=== PATIENT | male | born 1940 | race Caucasian/White ===

== ENCOUNTER 2019-05-14 11:34 | Emergency (ER) | payer MEDICARE, SELFPAY ==
[2019-05-14 11:40] VITALS: BP 158/81; PULSE 65; RESP 16; TEMP 36.6; O2SAT 95; BMI 27.1
--- NOTE | 2019-05-14 11:57 | ED.VIS.GEN ---
History of Present Illness Chief Complaint: Male Pain/Injury Narrative: 78-year-old male presents with right inguinal hernia discomfort. He has been dealing with this since 1990. He reports that he is all several surgeons over the years, had an MRI, and ultimately was told that this is nonoperative. Typically, he is able to reduce it when he lays flat but it is always out when he walks. For the past few days, it has been more uncomfortable when he is walking but he is still able to reduce it. He denies fever or change in bowel habits. No urinary symptoms either. Current severity is moderate. He does suffer from skin cancer and is planning to go back to [place] this June to have definitive treatment of his multiple areas of skin cancer on his face. Past Medical History - Allergies and Home Meds Allergies/Adverse Reactions: Allergies codeine Allergy (Verified 12/24/14 14:45) Other Primary Care Physician: Sandy Martinez [Primary Care Provider] - Smoking Status: Never smoker Review of Systems General: Denies: Chills, Fever, Sweats Eyes: Denies: Visual changes - bilaterally, Diplopia ENT: Denies: Rhinorrhea, Sore throat Cardiovascular: Denies: Chest pain, Palpitations Respiratory: Denies: Dyspnea, Cough, Dyspnea on exertion Gastrointestinal: Reports: Abdominal pain. Denies: Nausea, Vomiting, Diarrhea, Melena, Hematochezia Genitourinary: Denies: Dysuria, Hematuria, Frequency Musculoskeletal: Denies: Back pain, Extremity Pain Skin: Denies: Rash, Wounds Neurological: Denies: Headache, Weakness, Numbness Physical Exam Vital Signs/Narrative: Vital Signs Temp Pulse Resp BP Pulse Ox 05/14/19 11:40 97.9 F 65 16 158/81 H 95 General: Well nourished, Well developed, No Acute Distress Head: Normocephalic, Atraumatic, - - Multiple wounds and areas of excoriation. Eyes: Perrl, EOMI ENT: Moist mucous membranes, No rhinorrhea Neck: Supple, Nontender Cardiovascular: Regular rate, Regular rhythm, No murmurs Respiratory: No distress, CTA bilaterally, Chest nontender Abdomen: Nondistended, Normal bowel sounds, Hernia reducible - right inguinal, overlying skin normal. Back: Nontender, Normal Inspection Extremities: Nontender, No edema Skin: Normal color, No rash Neurological: Alert, Oriented x3, Cranial nerves II-XII grossly intact, Normal Strength, Normal Sensation Psychological: Normal affect, Normal Mood Diagnostic/Tx/Re-eval - Medical Decision Making Labs are unremarkable except for a sodium of 126. He states that he has chronic hyponatremia and is frequently lower than this. I gave him normal saline here. He feels well and would like to follow-up with his doctor as an outpatient. He states that he has actually been on a salt free diet for the past month because of a meal delivery service that he is using that has no salt at all. He does have a large right inguinal hernia on his CT scan containing bowel however on reexamination, he is able to easily reduce it. He has been dealing with this for over 20 years. It is not any bigger according to him than it normally as and he is still able to reduce it. His lactic acid is normal and there is no leukocytosis. I do not feel he needs emergency surgery. I feel that he can safely follow-up as an outpatient with a surgeon. I will make him a referral. He will return to the emergency department if he is any worse but at this point he is requesting discharge and feels much better. He will return if he is unable to reduce the hernia, develops redness over it, or has increased pain. ED Disposition - Plan for ED Patient: Disposition: Home or Assisted Living Diagnosis: Right inguinal hernia, Hyponatremia Prescriptions: Hydrocodone/Acetaminophen [[place] 5-325 Tablet] 1 each PO TID #9 tablet Referrals: Sandy Martinez [Primary Care Provider] - As soon as possible Jenni Garcia MD [STAFF PHYSICIAN] - As soon as possible (for hernia repair )
--- NOTE | 2019-05-14 12:11 | CT_ITS ---
STUDY: CT ABDOMEN AND PELVIS WITH CONTRAST REASON FOR EXAM: Male, 78 years old. Right inguinal hernia. RADIATION DOSAGE (If Supplied By Facility): CTDIvol = ( 10.27 ) mGy, DLP = ( 518.97 ) mGycm TECHNIQUE: Transaxial images were obtained from the dome of the diaphragm to the symphysis pubis with oral contrast. 75 IV/Oral Isovue 370 was administered. Sagittal and coronal images were reconstructed. Individualized dose optimization techniques were used for this CT. COMPARISON: None. FINDINGS: Mild increased linear markings at the lung bases suggestive of mild bibasilar scarring. Coronary artery calcification. 1 cm cyst in the posterior peripheral aspect of the right lobe of the liver. Mild degree of intrahepatic biliary ductal dilatation most likely secondary to prior cholecystectomy. There are surgical clips in the gallbladder fossa consistent with a prior cholecystectomy. Minimal dilatation of the common bile duct most likely secondary to the postcholecystectomy state. There are multiple benign calcified granulomata of the spleen. Normal pancreas. Normal bilateral adrenal glands. There is a 1.5 cm cyst in the posterior upper pole of the right kidney. There is a 3.4 cm x 3.2 cm cyst in the medial posterior aspect of the left kidney. There is a small hiatal hernia. Normal small intestine. Moderate amount of fecal material is seen in the colon. Scattered sigmoid diverticula. The appendix is visualized and appears normal. There is diffuse atherosclerotic calcification of the abdominal aorta, without a demonstrated aneurysm. Normal inferior vena cava. Normal retroperitoneum. Normal urinary bladder. There is enlargement of the prostate gland. It measures 5 cm x 5.3 cm. Prostatic calcifications are seen. Large right inguinal hernia containing a portion of the cecum. Small left inguinal hernia containing fat. Complete collapse of the L1 vertebrae. Loss of height of the L2 and L4 vertebrae. CT/Abdomen/Pelvis WITH Contrast IMPRESSION: Large right inguinal hernia containing nondilated cecum. Status post cholecystectomy with mild degree of intrahepatic biliary ductal dilatation as well as prominent common bile duct. Bilateral renal cysts. Prostatic enlargement with central calcification. Electronically Signed: Mickey Miner, at 14:29 EDT , Service support ,
[2019-05-14] MEDS: 0.9% Normal Saline 1,000 ML 500 ML IV (12:43)
[2019-05-14 12:59] LABS: Absolute Lymphocyte Count 1.49 X10^3/uL (0.83-4.51); Absolute Neutrophil Count 5.3 X10^3/uL (2.0-7.7); Basophil# 0.02 X10^3/uL; Basophil% 0.3 % (0-1); Hematocrit 43.6 % (40-54); Lymphocyte # 1.49 X10^3/ul (4.0); Mean Corp Hgb Conc 34.4 g/dL (32-36); Mean Corpuscular Hgb 30.8 pg (27.0-32.0); Mean Corpuscular Volume 89.5 fL (80-94); Mean Platelet Vol. 9.4 fl (6.2-12.0); Monocyte# 0.59 X10^3/uL; Monocyte% 7.9 % (0-10); NRBC Flagged by Analyzer 0 % (0-5); Neutrophil # 5.32 X10^3/uL (2.7-7.7); Neutrophil % 71.4 % (47-70); POSITIVE MORPHOLOGY YES; Platelet Count 200 K/mm3 (150-450); RBC Distribution Width CV 12.3 % (11.6-14.6); RBC Distribution Width SD 40.5 fl (35.1-43.9); Red Blood Count 4.87 M/mm3 (4.6-6.2); White Blood Count 7.5 K/mm3 (4.4-11.0)
[2019-05-14 13:19] LABS: Anion Gap 4 (5-15); BUN 13 mg/dL (7-18); BUN/Creat Ratio 11.2 RATIO (10-20); Calcium,Total 8.6 mg/dL (8.5-10.1); Chloride 94 mmol/L (98-107); Creatinine, Serum 1.16 mg/dL (0.70-1.30); EST Glomerular Filtration Rate 64 mL/min (>60); Est Glom Filt Rate - Afr Amer 78 mL/min (>60); Estimated Creatinine Clearance 41.56 ml/min; Glucose 96 mg/dL (74-106); Potassium 3.9 mmol/L (3.5-5.1); Sodium Level 126 mmol/L (136-145)
[2019-05-14 13:24] LABS: Lactic Acid 0.9 mmol/L (0.4-2.0)
[2019-05-14 13:26] LABS: Differential Indicated SCAN CRITERIA MET
[2019-05-14 13:34] VITALS: RESP 16
[2019-05-14 15:23] VITALS: BP 143/79; PULSE 65; RESP 16; O2SAT 96
== END 2019-05-14 15:31 | disposition home or self-care (01) ==
PROVIDERS: Emergency Provider Emergency Medicine; Family Provider Nurse Practitioner; PCP Nurse Practitioner
DX: K40.90 Unilateral inguinal hernia, without obstruction or gangrene, not specified as recurrent (principal); N28.1 Cyst of kidney, acquired; E87.1 Hypo-osmolality and hyponatremia; N40.0 Benign prostatic hyperplasia without lower urinary tract symptoms; Z90.49 Acquired absence of other specified parts of digestive tract; Z88.5 Allergy status to narcotic agent; C44.300 Unspecified malignant neoplasm of skin of unspecified part of face
CPT/HCPCS: 74177; 80048; 83605; 85025; 96360; 96361; 99285; J7030; Q9967; A4216